=== PATIENT | male | born 2000 | race Caucasian/White ===

== ENCOUNTER → 2020-09-25 14:50 | Outpatient (BNVA) | payer OTHER, SELFPAY | PROVIDERS: Visit Provider Nurse Practitioner Family | DX: Z20.822 Contact with and (suspected) exposure to COVID-19 (principal) | CPT/HCPCS: 87635 ==

== ENCOUNTER 2021-06-15 16:48 | Inpatient (IN) | payer MEDICAID, SELFPAY ==
[2021-06-15 16:55] VITALS: BP 117/79; PULSE 94; RESP 18; TEMP 36.9; O2SAT 97; BMI 25.7
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
[2021-06-15 17:46] LABS: Amphetamines Screen Urine Negative (Negative); Barbiturates Screen Urine Negative (Negative); Benzodiazepines Screen Urine Negative (Negative); Cocaine Screen Urine Negative (Negative); Opiate Screen Urine Negative (Negative); PCP Screen Urine Negative (Negative); THC Screen Urine Negative (Negative)
[2021-06-15 18:11] LABS: Add Urine Microscopic? NO; Charge for UA Resulting for Rev
[2021-06-15 18:13] LABS: Bilirubin Urine Neg (Negative); Blood Urine Neg (Negative); Glucose Urine UA Norm (Normal); Ketones Urine Negative (Negative); Leukocyte Esterase Urine Negative (Negative); Nitrate Urine Negative (Negative); Protein Urine Neg (Negative); Urine Appearance Clear (CLEAR); Urine Color Yellow (Yellow); Urobilinogen Urine Norm (Negative); pH Urine 6.5 (5-7)
[2021-06-15 18:23] VITALS: BP 113/75; PULSE 96; RESP 16; O2SAT 98
[2021-06-15 18:27] LABS: Basophils # 0.1 10^3/uL (0.0-0.1); Eosinophils # 0.3 10^3/uL (0.0-0.8); Eosinophils % 5.5 %; Hematocrit 44.3 % (42.0-52.0); Hemoglobin 15.3 g/dL (11.7-16.6); Lymphocytes # 2.2 10^3/uL (0.8-4.8); Lymphocytes % 34.5 %; Mean Corpuscular HGB Conc 34.5 g/dL (30.0-36.0); Mean Corpuscular Hemoglobin 29.7 pg (28.0-34.0); Mean Platelet Volume 9.4 fL (7.4-10.4); Monocytes # 0.8 10^3/uL (0.2-0.9); Monocytes % 12.4 %; Neutrophils # 2.87 10^3/uL (1.8-7.7); Nucleated Red Blood Cells % 0 %; Platelet Count 271 10^3/cmm (130-400); Red Blood Count 5.15 10^6/uL (4.1-5.3); Red Cell Distribution Width 12.2 % (12.1-15.1); White Blood Count 6.2 10^3/uL (4.0-10.0)
[2021-06-15 18:44] LABS: Alanine Aminotransferase 215 U/L (0-41); Albumin Level 4.4 g/dL (3.5-5.2); Alkaline Phosphatase 82 IU/L (40-130); Anion Gap 12.9 (5-19); Aspartate Amino Transferase 85 U/L (0-40); Blood Urea Nitrogen 11 mg/dL (6-20); Calcium 8.7 mg/dL (8.5-10.5); Carbon Dioxide 26 mmol/L (22-29); Chloride 100 mmol/L (98-107); Globulin 2.2 g/dL (1.3-4.6); Glucose 86 mg/dL (65-115); Osmolality Calculated 279 mOsm/kg (285-295); Potassium 3.9 mmol/L (3.5-5.1); Sodium 135 mmol/L (136-145); Total Bilirubin 0.5 mg/dL (0.15-1.2); Total Protein 6.6 g/dL (6.6-8.7)
[2021-06-15 18:48] LABS: Acetaminophen < 5.0 ug/mL (10-30); Salicylate < 0.3 mg/dL (3-10)
[2021-06-15 19:15] VITALS: BP 110/61; PULSE 79; RESP 16; O2SAT 97
[2021-06-15 20:36] VITALS: BP 121/70; PULSE 77; RESP 17; TEMP 36.8; O2SAT 98
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
[2021-06-15 20:59] VITALS: BP 124/70; PULSE 70; RESP 17; TEMP 36.8; O2SAT 98
[2021-06-15] MEDS: trazodone 100 mg Tablet PO (21:18)
[2021-06-16 05:31] VITALS: BMI 25.7
[2021-06-16 06:00] VITALS: BP 81/56; PULSE 84; RESP 18; TEMP 37.1; O2SAT 99
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
[2021-06-16] MEDS: nicotine 2 mg Gum BUCCAL (09:47)
[2021-06-16 13:34] VITALS: BP 128/75; PULSE 85; RESP 17; TEMP 37.1; O2SAT 98
[2021-06-16] MEDS: OLANZapine 10 mg TABLET PO ×2 (17:04→18:18)
[2021-06-16] MEDS: escitalopram 10 mg Tablet PO (17:04)
[2021-06-16 20:02] VITALS: RESP 15; TEMP 36.4
--- NOTE | 2021-06-16 20:02 | PC.NURSE ---
pt refused pulse, blood pressure, and SPO2 reading
[2021-06-16] MEDS: trazodone 100 mg Tablet PO (20:53)
[2021-06-17 06:00] VITALS: BP 87/56; PULSE 83; RESP 18; TEMP 36.4; O2SAT 98
[2021-06-17] MEDS: OLANZapine 10 mg TABLET PO ×2 (10:08→17:15)
[2021-06-17 14:00] VITALS: BP 99/56; PULSE 76; RESP 17; TEMP 36.8; O2SAT 99
--- NOTE | 2021-06-17 18:50 | W.PM.NPUPNS ---
Subjective NPU Subjective: Patient presents today reporting that he feels as, as he is felt in some time now. He reports he feels the medications are good and helpful the way that they are. His main concern is trying to figure out how to get back to his family and avoid this happening again. He reports he is eating and sleeping fine. He was sad at 1 point as his family had left some notes in the reading material just tell him how much they cared about him which amplified his emotionality. He feels he has accomplished what he came in the hospital for and we agreed to talk to his family in the morning about the possibility for discharge. Mental Status Exam MSE Comments: This is a well-nourished, well-developed white male in hospital scrubs with adequate grooming and eye contact. No abnormal movements. Cooperative with exam in mild distress. Speech was decreased rate and volume. Mood described as feeling better, affect subdued. Thought process, organized. Thought content: patient denies any suicidal or homicidal ideation, no delusions reported or noted, and denies any auditory or visual hallucinations. Attention and concentration are intact and memory is reliable but none were formally tested. He is alert and oriented three times. Insight and judgment are fair. Impulse control is limited. Vitals/I&O/Wt Last Vital Signs Temp 98.3 F 06/17/21 14:00 Pulse 76 06/17/21 14:00 Resp 17 06/17/21 14:00 BP 99/56 06/17/21 14:00 Pulse Ox 99 06/17/21 14:00 Weight last 48 hrs Weight 83.915 kg Data NPU : 06/15/21 18:21 06/15/21 18:21 A&P Assessment and plan (1) Post concussion syndrome: Status: Acute (2) History of jacque: Status: Acute (3) Suicidal thoughts: Status: Acute (4) Depression: Status: Acute (5) Bipolar disorder: Status: Acute Plan This is a 20 year old white male with frequent concussions, reports of depression, anxiety and possible racing thoughts, who presents with two recent concussive episodes this year. Continue current medications. Restarted Lexapro 10 mg po qam and changed Zyprexa to 10 mg po bid. Encourage individual, group and milieu therapy Continue q-15 minute check for safety Recommend sober living treatment at the highest level of care to which the patient is willing to commit. Involuntary Hold Information 96 Hour Hold: 96 Hour Involuntary Admission: No Attestations NPU Medical Necessity Statement*: Inpatient hospitalization is medically necessary and the clinically appropriate intervention at this time. We will monitor medications and make changes as indicated. Likely length of stay is 1-3 days. Coding Level of Care Code Acute Orientation And Mobility Instructor for Jian Aguirred Diagnoses Post concussion syndrome F07.81 History of jacque Z86.59 Suicidal thoughts R45.851 Depression F32.A Bipolar disorder F31.9
[2021-06-17 19:43] VITALS: BP 126/76; PULSE 65; RESP 18; TEMP 36.4; O2SAT 99
[2021-06-17] MEDS: trazodone 100 mg Tablet PO (20:09)
[2021-06-18 06:00] VITALS: BP 123/90; PULSE 89; RESP 20; TEMP 36.4; O2SAT 98
[2021-06-18] MEDS: OLANZapine 10 mg TABLET PO ×2 (09:14→20:21)
[2021-06-18 14:00] VITALS: BP 101/64; PULSE 101; RESP 16; TEMP 36.6; O2SAT 100
--- NOTE | 2021-06-18 18:07 | P.NPUPN_ITS ---
Subjective NPU Subjective: Patient presents today feeling a little better. Then a chance to speak with his family who has some significant concerns about the volatility that he can display at home. We discussed working with Dr. Monahan as well as other providers to try to get him connected to a head injury clinic. He actually did have a baseline study done when he was in school, so connection to said program might shed significant light on how much of this is related to postconcussive syndromes. We discussed the likelihood of discharge in the next 48 hours. Mental Status Exam MSE Comments: This is a well-nourished, well-developed white male in hospital scrubs with adequate grooming and eye contact. No abnormal movements. Cooperative with exam in mild distress. Speech was decreased rate and volume. Mood described as feeling better, but homesick affect subdued. Thought process, organized. Thought content: patient denies any suicidal or homicidal ideation, no delusions reported or noted, and denies any auditory or visual hallucinations. Attention and concentration are intact and memory is reliable but none were formally tested. He is alert and oriented three times. Insight and judgment are fair. Impulse control is limited. Vitals/I&O/Wt Last Vital Signs Temp 97.8 F 06/18/21 14:00 Pulse 101 H 06/18/21 14:00 Resp 16 06/18/21 14:00 BP 101/64 06/18/21 14:00 Pulse Ox 100 06/18/21 14:00 Data NPU : 06/15/21 18:21 06/15/21 18:21 A&P Assessment and plan (1) Bipolar disorder: Status: Acute (2) Substance abuse: Status: Acute (3) Post concussion syndrome: Status: Acute (4) Suicidal thoughts: Status: Acute (5) History of jacque: Status: Acute (6) Depression: Status: Acute Plan This is a 20 year old white male with frequent concussions, reports of depres adams, anxiety and possible racing thoughts, who presents with two recent concussive episodes this year. Continue current medications. Restarted Lexapro 10 mg po qam and changed Zyprexa to 10 mg po bid. Encourage individual, group and milieu therapy Continue q-15 minute check for safety Recommend sober living treatment at the highest level of care to which the patient is willing to commit. Involuntary Hold Information 96 Hour Hold: 96 Hour Involuntary Admission: No Attestations NPU Medical Necessity Statement*: Inpatient hospitalization is medically necessary and the clinically appropriate intervention at this time. We will monitor medications and make changes as indicated. Likely length of stay is 1-2 days. Coding Level of Care Code Acute Group Tester for [facility] Fwd Diagnoses Bipolar disorder F31.9 Substance abuse F19.10 Post concussion syndrome F07.81 Suicidal thoughts R45.851 History of jacque Z86.59 Depression F32.A
[2021-06-18 20:17] VITALS: BP 116/75; PULSE 86; RESP 20; TEMP 36.6; O2SAT 96
[2021-06-18] MEDS: trazodone 100 mg Tablet PO (20:21)
[2021-06-19 06:00] VITALS: BP 111/68; PULSE 85; RESP 18; TEMP 36.4; O2SAT 98
[2021-06-19] MEDS: OLANZapine 10 mg TABLET PO ×2 (08:23→20:52)
--- NOTE | 2021-06-19 13:46 | W.PM.NPUPNS ---
Subjective NPU Subjective: Patient presents today reporting that he is doing fairly well. We discussed plans to refer him to his PCP for referral to a concussion specialist. We also discussed working to get the records from his baseline tests in high school. We additionally agreed to be get some labs for inflammatory studies but acknowledged that some of them will not be back immediately but likely will be back prior to his appointment with Dr. Monahan. He reports that he is feeling good and denies any problematic symptoms. He reports that he is doing fine on the medication and we discussed the likelihood of discharge in the morning. Medications: Medication Review Details: This is a well-nourished, well-developed white male in hospital scrubs with adequate grooming and eye contact. No abnormal movements. Cooperative with exam in no acute distress. Speech was slightly decreased rate and volume. Mood described as pretty good, affect more euthymic. Thought process, organized. Thought content: patient denies any suicidal or homicidal ideation, no delusions reported or noted, and denies any auditory or visual hallucinations. Attention and concentration are intact and memory is reliable but none were formally tested. He is alert and oriented three times. Insight and judgment are fair. Impulse control is improving. Vitals/I&O/Wt Last Vital Signs Temp 97.6 F 06/19/21 06:00 Pulse 85 06/19/21 06:00 Resp 18 06/19/21 06:00 BP 111/68 06/19/21 06:00 Pulse Ox 98 06/19/21 06:00 Data NPU : 06/15/21 18:21 06/15/21 18:21 A&P Assessment and plan (1) Substance abuse: Status: Acute (2) Bipolar disorder: Status: Acute (3) Post concussion syndrome: Status: Acute (4) History of jacque: Status: Acute (5) Suicidal thoughts: Status: Acute (6) Depression: Status: Acute Plan This is a 20 year old white male with frequent concussions, reports of depression, anxiety and possible racing thoughts, who presents with two recent concussive episodes this year. 1. Continue current medications. Restarted Lexapro 10 mg po qam and changed Zyprexa to 10 mg po bid. 2. Encourage individual, group and milieu therapy 3. Continue q-15 minute check for safety 4. Recommend sober living treatment at the highest level of care to which the patient is willing to commit. 5. Working to get baseline concussion results and will get some Lyme studies and inflammatory markers. Involuntary Hold Information 96 Hour Hold: 96 Hour Involuntary Admission: No Attestations NPU Medical Necessity Statement*: Inpatient hospitalization is medically necessary and the clinically appropriate intervention at this time. We will monitor medications and make changes as indicated. Likely length of stay is 1-2 days. Coding Level of Care Code Acute Chop Saw Operator for [facility] Fwd Diagnoses Substance abuse F19.10 Bipolar disorder F31.9 Post concussion syndrome F07.81 History of jacque Z86.59 Suicidal thoughts R45.851 Depression F32.A
[2021-06-19 14:00] VITALS: BP 127/81; PULSE 70; RESP 16; TEMP 36.7; O2SAT 98
[2021-06-19] MEDS: trazodone 100 mg Tablet PO (20:52)
[2021-06-19 21:15] VITALS: BP 127/89; PULSE 84; RESP 17; TEMP 36.4; O2SAT 99
[2021-06-20 06:00] VITALS: BP 90/60; PULSE 87; RESP 16; TEMP 36.5; O2SAT 98
[2021-06-20] MEDS: OLANZapine 10 mg TABLET PO (08:59)
[2021-06-20 11:32] LABS: Basophils % 0.6 %; Eosinophils # 0.3 10^3/uL (0.0-0.8); Eosinophils % 4.4 %; Hematocrit 45.9 % (42.0-52.0); Hemoglobin 15.5 g/dL (11.7-16.6); Lymphocytes # 1.9 10^3/uL (0.8-4.8); Lymphocytes % 28.8 %; Mean Corpuscular HGB Conc 33.8 g/dL (30.0-36.0); Mean Corpuscular Hemoglobin 29.5 pg (28.0-34.0); Mean Corpuscular Volume 87.4 fl (80-94); Mean Platelet Volume 9.3 fL (7.4-10.4); Monocytes # 0.7 10^3/uL (0.2-0.9); Monocytes % 10.4 %; Neutrophils # 3.56 10^3/uL (1.8-7.7); Neutrophils % 54.6 %; Nucleated Red Blood Cells % 0 %; Platelet Count 273 10^3/cmm (130-400); Red Blood Count 5.25 10^6/uL (4.1-5.3); White Blood Count 6.5 10^3/uL (4.0-10.0)
[2021-06-20 11:51] LABS: Alanine Aminotransferase 198 U/L (0-41); Albumin Level 4.7 g/dL (3.5-5.2); Alkaline Phosphatase 84 IU/L (40-130); Anion Gap 12.1 (5-19); Aspartate Amino Transferase 71 U/L (0-40); Blood Urea Nitrogen 14 mg/dL (6-20); Calcium 9.6 mg/dL (8.5-10.5); Carbon Dioxide 27 mmol/L (22-29); Chloride 102 mmol/L (98-107); Globulin 2.4 g/dL (1.3-4.6); Glomerular Filtration Rate 94.3 mL/min (90-130); Glucose 95 mg/dL (65-115); Osmolality Calculated 284 mOsm/kg (285-295); Potassium 4.1 mmol/L (3.5-5.1); Sodium 137 mmol/L (136-145); Total Bilirubin 0.4 mg/dL (0.15-1.2); Total Protein 7.1 g/dL (6.6-8.7)
[2021-06-20 12:10] LABS: Hepatitis B Core AB, Total Non-Reactive (Nonreactive); Hepatitis B Surface AB 3.5 (11.5-1000); Hepatitis B Surface Antigen Non-Reactive (Nonreactive); Hepatitis C Virus Antibody Non-Reactive (Nonreactive)
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
[2021-06-20] MEDS: escitalopram 10 mg Tablet PO (15:07)
[2021-06-20 15:26] VITALS: BP 90/60; PULSE 87; RESP 16; TEMP 36.5; O2SAT 98
--- NOTE | 2021-06-20 15:55 | PC.NURSE ---
TEAM HAS DETERMINED PT IS STABLE TO DC FROM NPU. PT DISCHARGING TO PARENTS. MEDICATIONS SENT TO [facility]. FOLLOW UP APPOINTMENTS SET UP. ALL DISCHARGE INFORMATION, FOLLOW UP APPOINTMENTS AND MEDICATION INFORMATION REVIEWED WITH PATIENT AND PARENTS. ALL VERBALIZED UNDERSTANDING. ALL PERSONAL BELONGINGS RETURNED TO PT AT DISCHARGE.
== END 2021-06-20 15:15 | disposition home or self-care (01) | DRG 885 ==
LOC: ER 17:44 → NP 18:57
PROVIDERS: Admitting Provider Psychiatry & Neurology Psychiatry; Emergency Provider Family Medicine; Visit Provider Psychiatry & Neurology Psychiatry
DX: F31.9 Bipolar disorder, unspecified (principal); R45.851 Suicidal ideations; F07.81 Postconcussional syndrome; Z81.8 Family history of other mental and behavioral disorders; F41.9 Anxiety disorder, unspecified; Z91.14 Patient's other noncompliance with medication regimen
CPT/HCPCS: 36415; 80053; 80306; 80307; 81003; 82248; 85025; 86705; 86706; 86709; 86803; 87340; 97150; 97165; 99285

== ENCOUNTER → 2021-08-15 11:00 | Outpatient (BNVA) | payer OTHER, SELFPAY | PROVIDERS: Visit Provider Nurse Practitioner | DX: F31.81 Bipolar II disorder (principal) | CPT/HCPCS: 80061; 83036 ==

== ENCOUNTER 2022-05-04 16:14 | Emergency (ER) | payer MEDICAID, SELFPAY ==
[2022-05-04 16:29] VITALS: BP 137/84; PULSE 89; RESP 14; TEMP 36.8; O2SAT 96
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
[2022-05-04] MEDS: HYDROcodone-acetaminophen 5-325 mg Tablet 1 TAB PO (17:38)
[2022-05-04] MEDS: bacitracin ointment Pkt 1 EACH TOPICAL (17:39)
--- NOTE | 2022-05-04 17:42 | PC.NURSE ---
antibiotic ointment applied, covered with non-stick telfa, wrapped with catherine
[2022-05-04 17:54] VITALS: PULSE 79; RESP 14; O2SAT 100
== END 2022-05-04 17:55 | disposition home or self-care (01) ==
PROVIDERS: Emergency Provider Nurse Practitioner Family; PCP Family Medicine
DX: T23.202A Burn of second degree of left hand, unspecified site, initial encounter (principal); X02.0XXA Exposure to flames in controlled fire in building or structure, initial encounter
CPT/HCPCS: 99283

== ENCOUNTER → 2024-11-05 12:14 | Outpatient (BNVA) | payer OTHER, SELFPAY | PROVIDERS: PCP Family Medicine; Visit Provider Registered Nurse Neonatal Intensive Care | DX: M25.562 Pain in left knee (principal) | CPT/HCPCS: 73562 ==